=== PATIENT | male | born 1990 | race African-American/Black ===

== ENCOUNTER 2018-07-18 10:05 | Emergency (ER) | payer OTHER ==
--- NOTE | 2018-07-18 10:50 | RAD ---
PORTABLE AP CHEST X-RAY: 07/18/2018 HISTORY: Chest pain and shortness of breath. COMPARISON: None available. FINDINGS: The cardiac silhouette and pulmonary vasculature are within normal limits. The lungs are clear. The osseous structures are intact. IMPRESSION: No acute cardiopulmonary process. POS: [facility]
--- NOTE | 2018-07-20 16:38 | EKG ---
Test Reason : CHEST PAIN Blood Pressure : / mmHG Vent. Rate : 063 BPM Atrial Rate : 063 BPM P-R Int : 168 ms QRS Dur : 096 ms QT Int : 402 ms P-R-T Axes : 076 084 048 degrees QTc Int : 411 ms Normal sinus rhythm with sinus arrhythmia Normal ECG Confirmed by DIANNE FARNSWORTH ([id number]), news copy editor MARYANN TRAVIS ([id number]) on 07/20/2018 4:37:23 PM Referred By: JAVAD Confirmed By:DIANNE FARNSWORTH
== END 2018-07-18 12:33 | disposition home or self-care (01) ==
LOC: ERS 10:05
DX: F41.9 Anxiety disorder, unspecified (principal); R07.9 Chest pain, unspecified; R06.02 Shortness of breath; F17.210 Nicotine dependence, cigarettes, uncomplicated
CPT/HCPCS: 71045; 93005

== ENCOUNTER 2018-07-23 16:10 | Inpatient (IN) | payer BC, OTHER ==
[2018-07-23] MEDS ORDERED: Ketorolac Tromethamine 30 MG/ML VIAL ONE (16:46)
[2018-07-23 17:06] LABS: #Basophils 0.1 thou/uL (0.0-0.2); #Eosinphils 0.2 thou/uL (0.0-0.7); #Lymphocytes 1.6 thou/uL (1.20-3.40); #Monocytes 0.8 thou/uL (0.11-0.59); #Neutrophils 9.4 thou/uL (1.40-6.50); %Basophils 0.6 % (0.0-1.0); %Eosinophils 1.6 % (0.0-10.0); %Lymphocytes 13.4 % (21.0-51.0); %Monocytes 6.8 % (0.0-10.0); %Neutrophils 77.6 % (42.0-75.0); Hemoglobin 15.5 g/dL (14.0-18.0); Mean Corpuscular HGB CONC 33.9 g/dL (32.0-36.0); Mean Corpuscular Hemoglobin 29.5 pg (27.0-31.0); Mean Platelet Volume 5.8 fL (7.4-10.4); Platelet Count 400 thou/uL (130-400); RBC Distribution Width 11.7 % (11.5-14.5); Red Blood Cell (RBC) Count 5.25 mill/uL (4.70-6.10); White Blood Cell (WBC) Count 12.1 thou/uL (4.8-10.8)
[2018-07-23 17:35] LABS: ALT (SGPT) 145 U/L (8-55); AST (SGOT) 338 U/L (5-34); Acetaminophen Less than 6.0 mcg/mL (10.0-30.0); Alcohol Less than 10 mg/dL (Less than 10); Alkaline Phosphatase 59 U/L (40-150); Anion Gap 17 mmol/L (10-20); BUN (Urea Nitrogen) 21 mg/dL (8.9-20.6); Bilirubin, Total 0.6 mg/dL (0.2-1.2); Calc. Creatinine Clearance 0 mL/min (70-130); Calcium 10.6 mg/dL (7.8-10.44); Carbon Dioxide 27 mmol/L (22-29); Chloride 99 mmol/L (98-107); Estimated GFR-MDRD 63; Globulin 3.4 g/dL (2.4-3.5); Glucose 75 mg/dL (70-105); Protein, Total 8.4 g/dL (6.0-8.3); Salicylate Less than 8.0 mg/dL (15.0-30.0); Sodium 139 mmol/L (136-145)
[2018-07-23 17:38] LABS: Troponin I Less than 0.010 ng/mL (< 0.028)
[2018-07-23 18:05] LABS: CKMB 14.5 ng/mL (0-6.6)
[2018-07-23 19:10] LABS: Medtox Reader # READER 1
[2018-07-23 19:11] LABS: Amphetamine Detected (NotDetected); Barbiturates Screen Not Detected (NotDetected); Benzodiazepine Screen Not Detected (NotDetected); Cocaine Metabolite Screen Detected (NotDetected); Medtox Control Line Valid? VALID (VALID); Methadone Not Detected (NotDetected); Methamphetamine Detected (NotDetected); Opiate Screen Not Detected (NotDetected); Oxycodone Screen Not Detected (NotDetected); Phencyclidine (PCP) Detected (NotDetected); THC/Cannabinoid Screen Detected (NotDetected); Tricyclic Screen Not Detected (NotDetected)
[2018-07-23] MEDS ORDERED: Acetaminophen 325 MG TAB PO PRN (20:15)
[2018-07-23] MEDS ORDERED: Ondansetron ODT 4 MG TAB SL PRN (20:15)
[2018-07-23] MEDS ORDERED: Ondansetron HCl/PF 4 MG/2 ML Vial IVP PRN (20:15)
[2018-07-23] MEDS: Sodium Chloride 0.9% 1,000 ML IV SCH (20:30)
[2018-07-24] MEDS: Sodium Chloride 0.9% 1,000 ML IV SCH ×5 (00:46→19:59)
[2018-07-24] MEDS ORDERED: Ondansetron ODT 4 MG TAB PO PRN (07:30)
[2018-07-24] MEDS ORDERED: Ondansetron HCl/PF 4 MG/2 ML Vial IVP PRN (07:30)
[2018-07-24 12:38] VITALS: BMI 23.3
--- NOTE | 2018-07-24 13:46 | EKG ---
Test Reason : Blood Pressure : / mmHG Vent. Rate : 065 BPM Atrial Rate : 065 BPM P-R Int : 154 ms QRS Dur : 094 ms QT Int : 390 ms P-R-T Axes : 082 096 057 degrees QTc Int : 405 ms Normal sinus rhythm Possible Left atrial enlargement Rightward axis Borderline ECG Confirmed by LANDON BEAVER, DAREK ([id number]), development editor MARYANN TRAVIS ([id number]) on 07/24/2018 1:45:47 PM Referred By: Confirmed By:DAREK NAVARRETE MD
[2018-07-24 14:23] LABS: Chloride 107 mmol/L (98-107); Potassium 3.7 mmol/L (3.5-5.1); Sodium 135 mmol/L (136-145)
[2018-07-24 14:24] LABS: Glucose 113 mg/dL (70-105)
[2018-07-24 14:26] LABS: Anion Gap 8 mmol/L (10-20); Carbon Dioxide 24 mmol/L (22-29)
[2018-07-24 14:28] LABS: Calc. Creatinine Clearance 121 mL/min (70-130); Calcium 8.4 mg/dL (7.8-10.44); Estimated GFR-MDRD Greater than 90; Phosphorus 3.3 mg/dL (2.3-4.7)
[2018-07-24 14:29] LABS: BUN (Urea Nitrogen) 16 mg/dL (8.9-20.6)
[2018-07-24 14:45] LABS: CK (CPK) 6270 U/L (30-200)
[2018-07-25] MEDS: Sodium Chloride 0.9% 1,000 ML IV SCH ×2 (04:30→12:41)
--- NOTE | 2018-07-25 08:28 | HP ---
DATE OF ADMISSION: 07/23/2018 CHIEF COMPLAINT: Body cramping and suspected drug use. HISTORY OF PRESENT ILLNESS: Mr. Dia is a 27-year-old -[place] male with no past medical history, came in because of muscle cramping and body cramping. The patient states he was [facility] the [facility] where he consumed different drugs. He does not know how much and how many. He did not have any nausea or vomiting. No chest pain. No headache, no dizziness. So his cramping and body aching that was getting worse, so he decided to come to the hospital. In the ER , patient was evaluated and found to have rhabdomyolysis with markedly elevated CPK and he was started on IV fluids and admitted for further evaluation and management. PAST MEDICAL HISTORY: Nothing significant. CURRENT MEDICATIONS: None. ALLERGIES: No known drug allergies. FAMILY HISTORY: Nothing of interest. SOCIAL HISTORY: The patient lives with family. No history of smoking. uses illicit drugs. REVIEW OF SYSTEMS: Unremarkable. PHYSICAL EXAMINATION: GENERAL: The patient is alert, awake, oriented x3. VITAL SIGNS: Temperature 98, pulse 50, respirations 20, blood pressure 100/60. HEENT: Head is normocephalic, atraumatic. Pupils are equal and reactive to light. Nasopharynx is pale and dry. Hard and soft palate, no lesions seen. SKIN: Skin turgor decreased. NECK: Supple. No JVD. LUNGS: Bilateral air entry. No rales, no rhonchi. CARDIAC: S1, S2, regular. ABDOMEN: Soft, no distention, no tenderness. No organomegaly. Bowel sounds present. RECTAL: Deferred. CENTRAL NERVOUS SYSTEM: No focal deficit. LABORATORY AND X-RAY FINDINGS: CBC shows WBC 12, hemoglobin 15, hematocrit 45, platelets 400. Metabolic panel: Sodium 139, potassium 4, chloride 99, CO2 27, creatinine 1.6, glucose 275. CPK was [address]. CK-MB 14, troponin I less than 0.010. EKG shows normal sinus rhythm, no acute ST-T wave changes seen. Urine drug screen that was positive for cocaine, cannabinoids, methamphetamines, amphetamines, and phencyclidine. ASSESSMENT: 1. Rhabdomyolysis. 2. Polysubstance abuse. 3. Acute kidney injury. PLAN: 1. Vital signs q.4 hours. 2. Activity: As tolerated. 3. Allergies: NKDA. 4. Diet: Regular. 5. IV fluids half normal saline at 100 mL per hour. 6. We will get a CPK level. 7. Probably will be discharged home soon. MIRNA
[2018-07-25 20:44] VITALS: TEMP 98.2
[2018-07-26 05:29] LABS: Anion Gap 9 mmol/L (10-20); BUN (Urea Nitrogen) 8 mg/dL (8.9-20.6); CK (CPK) 2506 U/L (30-200); Calc. Creatinine Clearance 137 mL/min (70-130); Calcium 8.7 mg/dL (7.8-10.44); Carbon Dioxide 26 mmol/L (22-29); Chloride 107 mmol/L (98-107); Estimated GFR-MDRD Greater than 90; Glucose 76 mg/dL (70-105); Sodium 138 mmol/L (136-145)
[2018-07-26 07:44] VITALS: BP 98/54
== END 2018-07-26 10:21 | disposition home or self-care (01) | DRG 683 ==
LOC: ERS 16:10 → T4-B 20:20
PROVIDERS: ADMIT Internal Medicine; ATTEND Internal Medicine
DX: N17.9 Acute kidney failure, unspecified (principal); M62.82 Rhabdomyolysis; F19.10 Other psychoactive substance abuse, uncomplicated; E86.0 Dehydration
CPT/HCPCS: 36415; 80048; 80053; 80306; 80307; 82550; 82553; 84100; 84484; 85025; 93005; 96361; 96374; A4216; J1885

== ENCOUNTER 2018-08-07 20:05 | Emergency (ER) | payer BC, OTHER ==
[2018-08-07] MEDS ORDERED: Acetaminophen 500 MG TAB ONE (20:35)
[2018-08-07 21:48] LABS: #Eosinphils 0.2 thou/uL (0.0-0.7); #Lymphocytes 1.8 thou/uL (1.20-3.40); #Monocytes 0.7 thou/uL (0.11-0.59); %Basophils 0.5 % (0.0-1.0); %Eosinophils 2.6 % (0.0-10.0); %Lymphocytes 23.1 % (21.0-51.0); %Monocytes 8.8 % (0.0-10.0); Hemoglobin 13.4 g/dL (14.0-18.0); Mean Corpuscular HGB CONC 33.9 g/dL (32.0-36.0); Mean Corpuscular Hemoglobin 30.2 pg (27.0-31.0); Mean Corpuscular Volume 88.9 fL (78.0-98.0); Mean Platelet Volume 6.6 fL (7.4-10.4); Platelet Count 368 thou/uL (130-400); RBC Distribution Width 11.9 % (11.5-14.5); Red Blood Cell (RBC) Count 4.43 mill/uL (4.70-6.10); White Blood Cell (WBC) Count 7.8 thou/uL (4.8-10.8)
[2018-08-07 21:53] LABS: ALT (SGPT) 25 U/L (8-55); AST (SGOT) 32 U/L (5-34); Acetaminophen Less than 6.0 mcg/mL (10.0-30.0); Albumin 4.6 g/dL (3.5-5.0); Alcohol Less than 10 mg/dL (Less than 10); Alkaline Phosphatase 51 U/L (40-150); Anion Gap 12 mmol/L (10-20); BUN (Urea Nitrogen) 18 mg/dL (8.9-20.6); Bilirubin, Total 0.4 mg/dL (0.2-1.2); CK (CPK) 640 U/L (30-200); Calc. Creatinine Clearance 0 mL/min (70-130); Calcium 9.8 mg/dL (7.8-10.44); Carbon Dioxide 26 mmol/L (22-29); Chloride 105 mmol/L (98-107); Estimated GFR-MDRD 79; Globulin 2.9 g/dL (2.4-3.5); Glucose 96 mg/dL (70-105); Potassium 3.4 mmol/L (3.5-5.1); Protein, Total 7.5 g/dL (6.0-8.3); Salicylate Less than 8.0 mg/dL (15.0-30.0); Sodium 140 mmol/L (136-145)
[2018-08-07 23:58] LABS: Bilirubin Negative (Negative); Blood, Urine Negative (Negative); Clarity CLEAR (Clear); Glucose, Urine (Dipstick) Negative (Negative); Leukocyte Negative (Negative); Nitrite Negative (Negative); Protein, Urine (Dipstick) Negative (Neg-Trace); Specific Gravity, Urine 1.029 (1.002-1.036); Urobilinogen 0.2 mg/dL (0.2-1.0)
[2018-08-08 00:08] LABS: Amphetamine Detected (NotDetected); Barbiturates Screen Not Detected (NotDetected); Benzodiazepine Screen Not Detected (NotDetected); Cocaine Metabolite Screen Detected (NotDetected); Medtox Control Line Valid? VALID (VALID); Medtox Reader # READER 4; Methadone Not Detected (NotDetected); Methamphetamine Detected (NotDetected); Opiate Screen Not Detected (NotDetected); Oxycodone Screen Not Detected (NotDetected); Phencyclidine (PCP) Detected (NotDetected); THC/Cannabinoid Screen Detected (NotDetected); Tricyclic Screen Not Detected (NotDetected)
== END 2018-08-08 06:46 | disposition home or self-care (01) ==
LOC: ERS 20:05
DX: F32.9 Major depressive disorder, single episode, unspecified (principal); F41.9 Anxiety disorder, unspecified; F17.210 Nicotine dependence, cigarettes, uncomplicated
CPT/HCPCS: 80053; 80306; 80307; 81003; 82550; 84443; 85025; 93005; 96360

== ENCOUNTER 2019-10-06 21:50 | Emergency (ER) | payer BC, OTHER | END 2019-10-06 23:48 | disposition home or self-care (01) | LOC: ERS 21:50 | DX: K02.9 Dental caries, unspecified (principal); Z71.6 Tobacco abuse counseling ==

== ENCOUNTER 2023-10-14 19:38 | Emergency (ER) | payer BC, OTHER, SELFPAY ==
[2023-10-14 22:25] LABS: SARS-CoV-2 NAA Rapid Test Not Detected (NotDetected)
== END 2023-10-14 23:20 | disposition home or self-care (01) ==
LOC: ERS 19:38
DX: J02.9 Acute pharyngitis, unspecified (principal); Z20.822 Contact with and (suspected) exposure to COVID-19
CPT/HCPCS: 87081; 87430; 99283

== ENCOUNTER 2023-10-16 18:25 | Emergency (ER) | payer SELFPAY ==
[2023-10-16] MEDS ORDERED: Ketorolac Tromethamine 30 MG/ML VIAL ONE (19:15)
== END 2023-10-16 19:56 | disposition home or self-care (01) ==
LOC: ERS 18:25
DX: K08.89 Other specified disorders of teeth and supporting structures (principal); F17.210 Nicotine dependence, cigarettes, uncomplicated
CPT/HCPCS: 96372; 99282; J1885

== ENCOUNTER 2023-10-17 03:03 | Emergency (ER) | payer SELFPAY | END 2023-10-17 04:07 | disposition home or self-care (01) | LOC: ERS 03:03 | DX: R10.13 Epigastric pain (principal); F41.9 Anxiety disorder, unspecified; F17.210 Nicotine dependence, cigarettes, uncomplicated | CPT/HCPCS: 93005 ==

== ENCOUNTER 2023-10-28 06:44 | Emergency (ER) | payer OTHER, SELFPAY ==
[2023-10-28] MEDS ORDERED: Lorazepam 1 MG TAB ONE (07:10)
== END 2023-10-28 07:17 | disposition home or self-care (01) ==
LOC: ERS 06:44
DX: F41.0 Panic disorder [episodic paroxysmal anxiety] (principal); F17.210 Nicotine dependence, cigarettes, uncomplicated
CPT/HCPCS: 99283